=== PATIENT | male | born 1985 | race Caucasian/White ===

== ENCOUNTER 2018-04-06 11:12 | Emergency (ER) | payer OTHER, SELFPAY ==
[2018-04-06 11:17] VITALS: BP 130/79; PULSE 77; RESP 18; TEMP 36.5; O2SAT 100; BMI 28.0
[2018-04-06 12:03] VITALS: BP 130/79; PULSE 77; RESP 18; TEMP 36.5; O2SAT 100; BMI 28.0
[2018-04-06 13:11] VITALS: BP 121/78; PULSE 60; RESP 14; O2SAT 98
--- NOTE | 2018-04-06 13:17 | ED_ITS ---
HPI - Neuro Symptoms/Deficit <Renetta Jolly PA-C - Last Filed: 04/06/18 21:35> General Chief Complaint: Neuro Symptoms/Deficit Stated Complaint: TOLD TO COME HERE BY PT THERAPIST TO GET MRI Time Seen by Provider: 04/06/18 13:17 Source: patient Mode of arrival: ambulatory Limitations: no limitations History of Present Illness HPI Narrative: This 32-year-old gentleman comes in after seeing physical therapy today and being told he needs an MRI. He states that he actually just went in to be seen for chronic ankle pain today, however he has had ongoing pain in his right elbow and forearm area, and tingling in his right hand fingers especially the pointer and middle fingers for a long time now, at least months. He that he started seeing PT a couple of weeks ago and dry needling was done without improvement, but he had neck traction yesterday and it felt better initially though still felt the numb/tingling sensation in his fingers. He states that when therapist saw him today they did some other evaluation and were concerned about radiculopathy in his neck. He states that his neck feels somewhat tight but he has not had any acute injury or changes. He has had sensation of difficulty swallowing for at least a year without any acute changes , cannot say whether any specific foods, liquids do not affect him. He states that they noticed reduced facial sensation and different pupillary constriction. He states that sensation does not seem quite equal on both sides but again no acute changes. He did have a fall back in 2013 after which he developed migraines but no acute head injury at that time. He did have MRI here about 9 months ago he states due to this and no acute findings. He states he is feeling normal today and denies any acute changes or new symptoms On Anticoagulants: No Related Data Home Medications Medication Instructions Recorded Confirmed dextroamphetamine-amphetamine 20 mg PO QAM 04/06/18 04/06/18 [Adderall XR] dextroamphetamine-amphetamine 10 mg PO DAILY 04/06/18 04/06/18 [Adderall] magnesium 500 mg PO DAILY 04/06/18 04/06/18 multivitamin 1 cap PO QAM 04/06/18 04/06/18 propranolol 80 mg PO DAILY 04/06/18 04/06/18 rizatriptan [Maxalt] 10 mg PO Q2-4H PRN 04/06/18 04/06/18 Allergies Allergy/AdvReac Type Severity Reaction Status Date / Time No Known Drug Allergies Allergy Verified 04/06/18 11:22 Review of Systems <Renetta Jolly PA-C - Last Filed: 04/06/18 21:35> Review of Systems All systems reviewed & are unremarkable except as noted in HPI and below PFSH <Renetta Jolly PA-C - Last Filed: 04/06/18 21:35> Comment: Rare EtOH Exam <YEIMY Mccracken Last Filed: 04/06/18 21:35> Narrative Exam Narrative: GENERAL APPEARANCE: Patient sitting comfortably, in no distress. HEENT: PERRL, EOMI, no nystagmus, normal oropharynx NECK: Supple, no masses, trachea midline with normal swallow LUNGS: Clear to auscultation bilaterally. HEART: Rate and rhythm regular without murmur, normal S1 and S2, no S3 or S4. NEUROLOGIC: Alert and oriented, normal speech, gait and coordination. Upper and lower extremity DTRs 2+ throughout with distraction. Sensation is grossly intact over the face and extremities. Able to elicit tingling with pressure over the right ulnar groove MUSCULOSKELETAL: Full Csp AROM and bilateral upper extremity range of motion without tenderness. Business Analyst Consultant strength 5/5 bilaterally Initial Vital Signs Initial Vital Signs: Vital Signs Temperature 97.7 F 04/06/18 11:17 Pulse Rate 77 04/06/18 11:17 Respiratory Rate 18 04/06/18 11:17 Blood Pressure 130/79 04/06/18 11:17 Pulse Oximetry 100 04/06/18 11:17 <Clarisa Dougherty DO - Last Filed: 04/07/18 17:00> Initial Vital Signs Initial Vital Signs: Vital Signs Temperature 97.7 F 04/06/18 11:17 Pulse Rate 77 04/06/18 11:17 Respiratory Rate 18 04/06/18 11:17 Blood Pressure 130/79 04/06/18 11:17 Pulse Oximetry 100 04/06/18 11:17 Course <YEIMY Mccracken Last Filed: 04/06/18 21:35> Additional Information: Patient has no acute symptoms today. He has several chronic issues and has appropriate care and referrals from his PCP. He does not appear to need any urgent imaging studies today given chronicity and lack of acute symptoms. He is agreeable with this plan and will follow up with PCP Vital Signs - 8 hr 04/06/18 11:17 04/06/18 12:03 04/06/18 13:11 Temperature 97.7 F 97.7 F Pulse Rate 77 77 60 Respiratory Rate 18 18 14 Blood Pressure 130/79 130/79 Blood Pressure [Right Arm] 121/78 Pulse Oximetry 100 100 98 <Clarisa Dougherty, - Last Filed: 04/07/18 17:00> Vital Signs - 8 hr 04/06/18 11:17 04/06/18 12:03 04/06/18 13:11 Temperature 97.7 F 97.7 F Pulse Rate 77 77 60 Respiratory Rate 18 18 14 Blood Pressure 130/79 130/79 Blood Pressure [Right Arm] 121/78 Pulse Oximetry 100 100 98 Discharge Plan Departure Patient Disposition: Home Clinical Impression: Paresthesias in right hand, Right arm pain, Dysphagia Discharge Date/Time: 04/06/18 13:46 Interventions: ED Discharge Assessment Last Done: 04/06/18 13:46 Instructions: Cubital Tunnel Syndrome Activity Restrictions/Additional Instructions: On exam today, you appear neurologically normal. The pain and tingling you have an your right hand fingers are a little bit like cubital tunnel syndrome, so I have given you some instructions for this, however your other fingers are affected as well so there may be more widespread nerve compression. Since you have not had any acute changes, you do not need further testing now, however you should see your PCP for the problems you talked with physical therapy about as you may need further imaging studies and workup. Please return here as we discussed if you have any acute changes. Thank you for your service! Prescriptions: No Action dextroamphetamine-amphetamine [Adderall] 10 mg Tablet 10 mg PO DAILY RF: 0 rizatriptan [Maxalt] 10 mg Tablet 10 mg PO Q2-4H PRN (Reason: Migraine Headache) RF: 0 dextroamphetamine-amphetamine [Adderall XR] 20 mg Capsule,Extended Release 24hr 20 mg PO QAM RF: 0 propranolol 80 mg Capsule,Extended Release 24 Hr 80 mg PO DAILY RF: 0 magnesium 250 mg Tablet 500 mg PO DAILY RF: 0 multivitamin Capsule 1 cap PO QAM RF: 0 Referrals: Juancho Del Toro PA-C [[facility]] - <Clarisa Dougherty DO - Last Filed: 04/07/18 17:00> Cosign ED Attending Cosignature Attestation: I was immediately available in the department for consultation. This documentation has been reviewed and I agree with assessment and plan. Supervised by Clarisa Dougherty DO
--- NOTE | 2018-04-06 13:27 | PC.NURSE ---
Moving all extremities equally well w/ equal strength, sensation. Neuro intact. Denies complaints at this time.
== END 2018-04-06 13:46 | disposition home or self-care (01) ==
PROVIDERS: Emergency Provider Internal Medicine
DX: R20.2 Paresthesia of skin (principal)
CPT/HCPCS: 99282; 99291

== ENCOUNTER → 2019-10-18 14:04 | Outpatient (CLI) | payer OTHER, SELFPAY ==
--- NOTE | 2019-10-18 | DI.MRI.S_ITS ---
PROCEDURE: MR TMJ WO CON INDICATIONS: JAW PAIN TECHNIQUE: Axial T1 spin echo, coronal and sagittal PD fast spin echo through the temporomandibular joints, in both the closed- and open-mouth positions. COMPARISON: None. FINDINGS: Image quality: Limited by motion artifact. Right: Joint is normally aligned on closed and open-mouth positioning. Articular disk demonstrates normal location and morphology. No bony erosions or osteophytes. Left: Joint is normally aligned on closed and open-mouth positioning. Articular disk demonstrates normal location and morphology. No bony erosions. Small osteophyte involving the anterior margin of the left mandibular condyle. IMPRESSION: 1. Mild left temporomandibular joint osteoarthritis. 2. No articular disc displacement. Dictated by: Heather Valiente MD, PhD on 10/18/2019 at 16:26 Approved by: Heather Valiente MD, PhD on 10/18/2019 at 16:33
== END ==
PROVIDERS: PCP General Practice; Referring Provider Dentist Oral and Maxillofacial Surgery; Visit Provider Dentist Oral and Maxillofacial Surgery
DX: R68.84 Jaw pain (principal); M26.69 Other specified disorders of temporomandibular joint
CPT/HCPCS: 70336